=== PATIENT | male | born 1975 | race Two or more races ===

== ENCOUNTER 2018-05-15 11:13 | Inpatient (IN) ==
[2018-05-15] MEDS ORDERED: Vancomycin Inj 1,000 MG in Sodium Chlor 0.9% Inj 250 ML IV.SIG STA (12:04)
[2018-05-15] MEDS ORDERED: Piperacil/Tazo 4.5 GM Premix 4.5 GM/100 ML BAG IV.SIG STA (12:04)
--- NOTE | 2018-05-15 12:33 | ED ---
HPI General Chief Complaint: Abdominal Pain Stated Complaint: Abdominal Pain Time Seen by Provider: 05/15/18 11:55 Source: patient Mode of arrival: ambulatory Limitations: no limitations History of Present Illness HPI narrative: Patient is a 42-year-old male presenting to the emergency department for evaluation of abdominal pain. Patient is on peritoneal dialysis. He reported red appearing peritoneal fluid yesterday, he noticed it again this morning. Today he developed the diffuse abdominal pain. He denies any fever chills. He denies any nausea or vomiting. Symptom onset was gradual , symptoms are moderate in nature. No alleviating factors. Pain is worse with movement. MD complaint: abdominal pain Onset (ago): day(s) Pain Consistency: constant Location: diffuse Severity: moderate Severity scale (1-10): 6 Quality: aching Relieving factors: nothing Exacerbating factors: movement Associated symptoms: denies other symptoms Related Data Home Medications Medication Instructions Recorded Confirmed amlodipine 10 mg PO DAILY 05/15/18 05/15/18 calcitriol 0.25 mcg PO Q OTHER DAY 05/15/18 05/15/18 calcium acetate 1,334 mg PO DAILY 05/15/18 05/15/18 mupirocin 1 applic TOPICAL DAILY 05/15/18 05/15/18 terazosin 2 mg PO HS 05/15/18 05/15/18 Allergies Allergy/AdvReac Type Severity Reaction Status Date / Time morphine AdvReac Mild Shortness Verified 05/15/18 12:04 of Breath Review of Systems Except as stated in HPI: all other systems reviewed are negative Constitutional Reports system reviewed and no additional complaints, except as docu PMFSH Medical History Medical History Chronic kidney disease (Acute) Hypertension (Acute) Peritoneal dialysis catheter in place (Acute) Social History Social History Substance History: No History of Abuse Second Hand Smoke Exposure: No Smoking Status: Never smoker How Often Do You Have a Drink Containing Alcohol: 2 to 3 times a week Immunization History Tetanus Immunization: <5 Years Hx Influenza Vaccine This Season: Yes Exam Narrative Exam Narrative: GENERAL: Well-developed, well-nourished, alert male. Presenting in no acute distress. SKIN: Focused skin assessment warm/dry. HEAD: Atraumatic. Normocephalic. EYES: Pupils equal and round. No scleral icterus. No injection or drainage. ENT: No nasal bleeding or discharge. Mucous membranes pink and moist. NECK: Trachea midline. No JVD. CARDIOVASCULAR: Regular rate and rhythm. 2/6 systolic murmur appreciated. RESPIRATORY: No accessory muscle use. Clear to auscultation. Breath sounds equal bilaterally. GASTROINTESTINAL: Abdomen soft, tender to palpation diffusely, nondistended. Hepatic and splenic margins not palpable. Peritoneal dialysis catheter just superior to umbilicus. No warmth or erythema noted to abdominal skin. MUSCULOSKELETAL: No obvious deformities. No clubbing. No cyanosis. No edema. NEUROLOGICAL: Awake and alert. No obvious cranial nerve deficits. Motor grossly within normal limits. Normal speech. PSYCHIATRIC: Appropriate mood and affect; insight and judgment normal. Course Initial Documented Vital Signs Temperature 98.5 F 05/15/18 11:19 Pulse Rate 80 05/15/18 11:19 Respiratory Rate 17 05/15/18 11:19 Blood Pressure 136/83 05/15/18 11:19 Pulse Oximetry 97 05/15/18 11:19 Last Documented Vital Signs Temperature 98.6 F 05/15/18 14:32 Pulse Rate 70 05/15/18 14:32 Respiratory Rate 18 05/15/18 14:32 Blood Pressure 135/75 05/15/18 14:32 Pulse Oximetry 98 05/15/18 14:32 Medical Decision Making MDM Narrative Medical decision making narrative: Patient presented with 2 days of red peritoneal fluid with an acute onset of abdominal pain today. Patient's vital signs are stable, labs and imaging ordered and pending. Sepsis workup initiated. Labs imaging reviewed. Patient was started on empiric antibiotics. Cultures are pending. Peritoneal fluid cultures are pending. The bloody drainage could related to the change of his catheter however he will be admitted this time to rule out peritonitis. Differential Diagnosis Differential Diagnosis: Sepsis versus peritonitis versus hemorrhage versus other Lab Data Lab results reviewed: Yes I reviewed the patient's lab results. Result diagrams: 05/15/18 12:20 05/15/18 12:20 Lab Results 05/15/18 05/15/18 05/15/18 Range/Units 12:20 12:20 12:20 WBC 11.4 H (4.0-11.0) th/mm3 RBC 3.93 L (4.50-5.90) mil/mm3 Hgb 11.9 L (13.0-17.0) gm/dL Hct 34.8 L (39.0-51.0) % MCV 88.5 (80.0-100.0) fL MCH 30.2 (27.0-34.0) pg MCHC 34.2 (32.0-36.0) % RDW 13.9 (11.6-17.2) % Plt Count 177 (150-450) th/mm3 MPV 8.6 (7.0-11.0) fL Neut % (Auto) 80.4 H (16.0-70.0) % Lymph % (Auto) 6.1 L (9.0-44.0) % [place] % (Auto) 10.9 H (0.0-8.0) % Eos % (Auto) 2.4 (0.0-4.0) % Baso % (Auto) 0.2 (0.0-2.0) % Neut # (Auto) 9.2 H (1.8-7.7) th/mm3 Lymph # (Auto) 0.7 L (1.0-4.8) th/mm3 [place] # (Auto) 1.2 H (0.0-0.9) th/mm3 Eos # (Auto) 0.3 (0.0-0.4) th/mm3 Baso # (Auto) 0.0 (0.0-0.2) th/mm3 WBC Differential . Differential Comment Auto diff final PT 10.5 (9.8-11.6) sec INR 1.0 Ratio APTT 31.7 H (24.3-30.1) sec Sodium 137 (136-145) meq/L Potassium 3.9 (3.5-5.1) meq/L Chloride 101 (98-107) meq/L Carbon Dioxide 24.9 (21.0-32.0) meq/L Anion Gap 11 (5-15) meq/L BUN 48 H (7-18) mg/dL Creatinine 6.54 H (0.60-1.30) mg/dL Estimated GFR 9 L (>89) mL/min Random Glucose 95 (74-106) mg/dL Lactic Acid (0.4-2.0) mmol/L Calcium 8.7 (8.5-10.1) mg/dL Phosphorus 3.9 (2.5-4.9) mg/dL Magnesium 1.9 (1.5-2.5) mg/dL Total Bilirubin 0.8 (0.2-1.0) mg/dL AST 8 L (15-37) U/L ALT 19 (12-78) U/L Alkaline Phosphatase 76 (45-117) U/L Total Protein 7.4 (6.4-8.2) g/dL Albumin 3.1 L (3.4-5.0) g/dL Lipase 116 (73-393) U/L Peritoneal pH Peritoneal Tot Protein gm/dL 05/15/18 05/15/18 Range/Units 12:20 13:15 WBC (4.0-11.0) th/mm3 RBC (4.50-5.90) mil/mm3 Hgb (13.0-17.0) gm/dL Hct (39.0-51.0) % MCV (80.0-100.0) fL MCH (27.0-34.0) pg MCHC (32.0-36.0) % RDW (11.6-17.2) % Plt Count (150-450) th/mm3 MPV (7.0-11.0) fL Neut % (Auto) (16.0-70.0) % Lymph % (Auto) (9.0-44.0) % [place] % (Auto) (0.0-8.0) % Eos % (Auto) (0.0-4.0) % Baso % (Auto) (0.0-2.0) % Neut # (Auto) (1.8-7.7) th/mm3 Lymph # (Auto) (1.0-4.8) th/mm3 [place] # (Auto) (0.0-0.9) th/mm3 Eos # (Auto) (0.0-0.4) th/mm3 Baso # (Auto) (0.0-0.2) th/mm3 WBC Differential Differential Comment PT (9.8-11.6) sec INR Ratio APTT (24.3-30.1) sec Sodium (136-145) meq/L Potassium (3.5-5.1) meq/L Chloride (98-107) meq/L Carbon Dioxide (21.0-32.0) meq/L Anion Gap (5-15) meq/L BUN (7-18) mg/dL Creatinine (0.60-1.30) mg/dL Estimated GFR (>89) mL/min Random Glucose (74-106) mg/dL Lactic Acid 1.1 (0.4-2.0) mmol/L Calcium (8.5-10.1) mg/dL Phosphorus (2.5-4.9) mg/dL Magnesium (1.5-2.5) mg/dL Total Bilirubin (0.2-1.0) mg/dL AST (15-37) U/L ALT (12-78) U/L Alkaline Phosphatase (45-117) U/L Total Protein (6.4-8.2) g/dL Albumin (3.4-5.0) g/dL Lipase (73-393) U/L Peritoneal pH 7.5 Peritoneal Tot Protein 0.3 gm/dL Imaging Data Radiologist's impression: ITS Impressions Chest X-Ray 05/15/18 12:04 CONCLUSION: No acute cardiopulmonary disease Abdomen/Pelvis CT 05/15/18 14:14 CONCLUSION: 1. Free intraperitoneal air. This may be related to peritoneal dialysis catheter which is looped in the pelvis and enters just to the left of umbilical region. 2. Mild ascites. Atrophic [place] kidneys. Radiology reports reviewed. Discharge Plan Discharge Disposition Patient Disposition: 30 Still Patient Discharge Condition Condition: Stable Discharge Details Discharge Problem: Peritonitis associated with peritoneal dialysis, CRF (chronic renal failure) Physicians Team ED Provider: Jian Edmonds ED Midlevel Provider: Monserrat Rogers Primary Care Provider: Primary Care PhysiciKati Rxs /Orders / Referrals /Forms Prescriptions: No Action amlodipine 10 mg Tablet 10 mg PO DAILY RF: 0 mupirocin 2 % Ointment 1 applic TOPICAL DAILY RF: 0 calcitriol 0.25 mcg Capsule 0.25 mcg PO Q OTHER DAY RF: 0 calcium acetate 667 mg Capsule 1,334 mg PO DAILY RF: 0 terazosin 2 mg PO HS RF: 0 Discharge Interventions Interventions: Vital Signs Last Done: 05/15/18 14:32 Status ED Status: With Doctor
[2018-05-15 12:36] LABS: Baso % (Auto) 0.2 % (0.0-2.0); Eos # (Auto) 0.3 th/mm3 (0.0-0.4); Eos % (Auto) 2.4 % (0.0-4.0); Hematocrit 34.8 % (39.0-51.0); Hemoglobin 11.9 gm/dL (13.0-17.0); Lymph # (Auto) 0.7 th/mm3 (1.0-4.8); Lymph % (Auto) 6.1 % (9.0-44.0); Mean Corpuscular HGB Conc 34.2 % (32.0-36.0); Mean Corpuscular Hemoglobin 30.2 pg (27.0-34.0); Mean Corpuscular Volume 88.5 fL (80.0-100.0); Mean Platelet Volume 8.6 fL (7.0-11.0); Mono # (Auto) 1.2 th/mm3 (0.0-0.9); Mono % (Auto) 10.9 % (0.0-8.0); Neut # (Auto) 9.2 th/mm3 (1.8-7.7); Neut % (Auto) 80.4 % (16.0-70.0); Platelet Count 177 th/mm3 (150-450); Red Blood Count 3.93 mil/mm3 (4.50-5.90); Red Cell Distribution Width 13.9 % (11.6-17.2); White Blood Count 11.4 th/mm3 (4.0-11.0)
[2018-05-15 12:44] LABS: Activated Partial Thrombo Time 31.7 sec (24.3-30.1); Prothrombin Time 10.5 sec (9.8-11.6)
[2018-05-15 12:58] LABS: Albumin 3.1 g/dL (3.4-5.0); Anion Gap 11 meq/L (5-15); Aspartate Aminotransferase 8 U/L (15-37); Blood Urea Nitrogen 48 mg/dL (7-18); Calcium 8.7 mg/dL (8.5-10.1); Carbon Dioxide 24.9 meq/L (21.0-32.0); Chloride 101 meq/L (98-107); Glomerular Filtration Rate 9 mL/min (>89); Glucose,Random 95 mg/dL (74-106); Lipase 116 U/L (73-393); Magnesium 1.9 mg/dL (1.5-2.5); Potassium 3.9 meq/L (3.5-5.1); Sodium 137 meq/L (136-145)
[2018-05-15 12:59] LABS: Alanine Aminotransferase 19 U/L (12-78); Phosphorus 3.9 mg/dL (2.5-4.9)
[2018-05-15 13:01] LABS: Alkaline Phosphatase 76 U/L (45-117); Total Protein 7.4 g/dL (6.4-8.2)
--- NOTE | 2018-05-15 13:05 | XR ---
EXAM DATE: 05/15/2018 12:57 PM EDT AGE/SEX: 42 years / Male INDICATIONS: Fever CLINICAL DATA: This is the patient's initial encounter. Patient reports that signs and symptoms have been present for 1 day and indicates a pain score of 0/10. MEDICAL/SURGICAL HISTORY: None. None. COMPARISON: No prior exams available for comparison. FINDINGS: A single AP view of the chest demonstrates the lungs to be symmetrically aerated without evidence of mass, infiltrate or effusion. The cardiomediastinal contours are unremarkable. Osseous structures a re intact. CONCLUSION: No acute cardiopulmonary disease Electronically signed by: Massimo Downs MD 05/15/2018 1:04 PM EDT
[2018-05-15 15:32] LABS: Total Protein,Peritoneal Fluid 0.3 gm/dL
--- NOTE | 2018-05-15 15:44 | CT ---
EXAM DATE: 05/15/2018 3:02 PM EDT AGE/SEX: 42 years / Male INDICATIONS: Right lower quadrant pain 2 days per patient CLINICAL DATA: This is the patient's initial encounter. Patient reports that signs and symptoms have been present for 2 days and indicates a pain score of 4/10. MEDICAL/SURGICAL HISTORY: Renal disease. Hypertension. . Peritoneal dialysis cath RADIATION DOSE: 6.75 CTDI (mGy) COMPARISON: No prior exams available for comparison. TECHNIQUE: Multiple contiguous axial images were obtained through the abdomen. Images were obtained using multiple row detector helical technique. Using automated exposure control and adjustment of the mA and/or kV according to patient size, radiation dose was kept as low as reasonably achievable to o btain optimal diagnostic quality images. DICOM format image data is available electronically for rev iew and comparison. FINDINGS: Lung bases demonstrate mild dependent atelectasis. There is free intraperitoneal air within the abdomen. This could be related to peritoneal dialysis ca theter. There is mild ascites predominantly around the liver and right paracolic gutter but also exte nding pelvis. No acute findings identified within the liver, spleen, adrenals or pancreas. The [place] kidneys are a trophic. Peritoneal dialysis catheter is looped in the pelvis. No bowel obstruction. Small hiatal her hossein. CONCLUSION: 1. Free intraperitoneal air. This may be related to peritoneal dialysis catheter which is looped in the pelvis and enters just to the left of umbilical region. 2. Mild ascites. Atrophic [place] kidneys. Electronically signed by: Micheal Hathaway MD 05/15/2018 3:43 PM EDT
[2018-05-15] MEDS ORDERED: Senna/Docusate Sodium 8.6/50 MG Tablet PO PRN (16:40)
[2018-05-15] MEDS ORDERED: Bisacodyl 10 MG Supp RECTAL PRN (16:40)
[2018-05-15] MEDS ORDERED: Temazepam 15 MG Capsule PO PRN (16:40)
--- NOTE | 2018-05-15 16:40 | P.HPFP ---
History of Present Illness Primary Care Physician: No Primary Care Physician <Jory Porter - 05/16/18 15:50> No Primary Care Physician <Adriana Kelly - 05/15/18 16:40> Chief Complaint: abdominal pain <Adriana Kelly - 05/15/18 23:24> History of Present Illness: Patient is a 42-year-old male with past medical history of hypertension and chronic kidney disease on peritoneal dialysis who presents to the ED due to diffuse abdominal pain. Patient is currently on vacation from [place]. He reports that 2 days ago he had the external portion of his peritoneal dialysis tubing replaced. Since Wednesday he has noted bloody/cloudy peritoneal fluid during his peritoneal dialysis. Denies any blood clots in the fluid. Patient reports that yesterday he ate a heavy fatty meal and developed severe diffuse abdominal pain worse at right upper quadrant. At that time abdominal pain was 7/10, currently abdominal pain is 1/10 since receiving pain medications in the ED. Patient vomited once, nonbloody non- bilious. Today he denies any fever, nausea or vomiting, diarrhea, chest pain, shortness of breath, numbness, weight loss. Patient does endorse chills on Wednesday night, now resolved. Of note patient has been on peritoneal dialysis for the past 5 years. Denies any previous episodes of blood in the peritoneal fluid or prior infection. He reports he still able to make urine and denies any dysuria. The ED patient received Zosyn 1, vancomycin 1 , [place] [address] abdomen pelvis showed free intraperitoneal air possibly due to peritoneal dialysis catheter, mild ascites and atrophic platinum kidneys. <Adriana Kelly - 05/15/18 23:37> - Diagnosis (1) Peritonitis associated with peritoneal dialysis (2) CRF (chronic renal failure) (3) Hypertension (4) Nutrition, metabolism, and development symptoms <Jory Porter - 05/16/18 15:50> (1) Peritonitis associated with peritoneal dialysis (2) CRF (chronic renal failure) (3) Hypertension (4) Nutrition, metabolism, and development symptoms <Adriana Kelly - 05/15/18 23:30> Inpatient Certification: I certify that the inpatient services were ordered in accordance with Medicare regulations governing the order. This includes certification that hospital inpatient services are reasonable and necessary and in the case of services not specified as inpatient-only under 42 CFR 419.22(n), that they are appropriately provided as inpatient services in accordance to with the 2-midnight benchmark under 43 CFR 412.3(e) <Jory Porter - 05/16/18 15:50> I certify that the inpatient services were ordered in accordance with Medicare regulations governing the order. This includes certification that hospital inpatient services are reasonable and necessary and in the case of services not specified as inpatient-only under 42 CFR 419.22(n), that they are appropriately provided as inpatient services in accordance to with the 2-midnight benchmark under 43 CFR 412.3(e) <Adriana Kelly 05/15/18 16:40> Review of Systems All other systems reviewed negative except as stated in HPI <Adriana Kelly 05/15/18 23:24> PMFSH - History History Provided By: Patient <Adriana Kelly 05/15/18 16:40> - Medical History Medical History: Medical History (Last Reviewed 05/15/18 @ 12:31 by ROB Tang) Chronic kidney disease Hypertension Peritoneal dialysis catheter in place <Jory Porter - 05/16/18 15:50> Medical History (Last Reviewed 05/15/18 @ 12:31 by ROB Tang) Chronic kidney disease Hypertension Peritoneal dialysis catheter in place <Adriana Kelly 05/15/18 16:40> - Tobacco History Second Hand Smoke Exposure: No <Adriana Kelly 05/15/18 16:40> Smoking Status: Never smoker <Adriana Kelly 05/15/18 16:40> - Alcohol History How Often Do You Have a Drink Containing Alcohol: Monthly or less <Adriana Kelly 05/15/18 23:24> - Substance Use History Substance History: No History of Abuse <Adriana Kelly 05/15/18 16:40> - Immunization History Tetanus Immunization: <5 Years <Adriana Kelly 05/15/18 16:40> Hx Influenza Vaccine This Season: Yes <Adriana Kelly 05/15/18 16:40> Medications and Allergies Allergies Allergy/AdvReac Type Severity Reaction Status Date / Time morphine AdvReac Mild Shortness Verified 05/15/18 12:04 of Breath <Jory Porter - 05/16/18 15:50> Home Medications Medication Instructions Recorded Confirmed Type amlodipine 10 mg PO DAILY 05/15/18 05/15/18 History calcitriol 0.25 mcg PO Q OTHER DAY 05/15/18 05/15/18 History calcium acetate 1,334 mg PO DAILY 05/15/18 05/15/18 History mupirocin 1 applic TOPICAL DAILY 05/15/18 05/15/18 History terazosin 2 mg PO HS 05/15/18 05/15/18 History <Jory Porter - 05/16/18 15:50> Active Medications: Active Medications Acetaminophen (Tylenol) 650 mg PO Q6HR PRN PRN Reason: PAIN SCALE 1 TO 2 Hydrocodone Bitart/Acetaminophen ([place] 5/325) 1 tab PO Q4H PRN PRN Reason: PAIN SCALE 3 TO 5 Last Admin: 05/15/18 23:43 Dose: 1 tab Al Hydroxide/Mg Hydroxide (Milk Of Magnesia Liq) 30 ml PO Q12H PRN PRN Reason: Mild Constipation Amlodipine Besylate (Norvasc) 10 mg PO DAILY [facility] Last Admin: 05/16/18 08:56 Dose: 10 mg Bisacodyl (Dulcolax Supp) 10 mg RECTAL DAILY PRN PRN Reason: SEVERE CONSITIPATION Calcitriol (Rocaltrol) 0.25 mcg PO Q48H [facility] Last Admin: 05/16/18 00:01 Dose: 0.25 mcg Calcium Acetate (Phoslo) 1,334 mg PO DAILY [facility] Last Admin: 05/16/18 08:56 Dose: 1,334 mg Ceftazidime (Tazicef Inj) 1,000 mg I-PERITONL DAILY [facility] Lactulose (Lactulose Liq) 30 ml PO DAILY PRN PRN Reason: SEVERE CONSITIPATION Mupirocin (Bactroban 2% Oint) 1 applicatio TOPICAL DAILY [facility] Last Admin: 05/16/18 12:51 Dose: 1 applicatio Ondansetron HCl (Zofran Inj) 4 mg IV.PUSH Q6H PRN PRN Reason: NAUSEA OR VOMITING Oxycodone/Acetaminophen (Percocet 10/325 Mg) 1 tab PO Q6H PRN PRN Reason: PAIN SCALE 6 TO 10 Last Admin: 05/16/18 08:58 Dose: 1 tab Senna/Docusate Sodium (Ijeoma-Colace) 1 tab PO BID PRN PRN Reason: CONSTIPATION Sennosides (Senokot) 17.2 mg PO Q12H PRN PRN Reason: Moderate Constipation Temazepam (Restoril) 15 mg PO HS PRN PRN Reason: INSOMNIA Terazosin HCl (Hytrin) 2 mg PO HS [facility] Last Admin: 05/16/18 00:02 Dose: 2 mg Vancomycin HCl (Vancomycin Inj) 2,000 mg I-PERITONL Q7D [facility] <Jory Porter - 05/16/18 15:50> Exam Vital signs: Vital Signs 05/15/18 20:00 05/16/18 00:00 05/16/18 04:00 Temperature 98.3 F 98.8 F 97.8 F Pulse Rate 58 L 79 64 Respiratory Rate 18 18 18 Blood Pressure 120/69 133/72 105/55 L Pulse Oximetry 98 97 99 05/16/18 08:00 05/16/18 09:28 05/16/18 11:45 Temperature 98.4 F 98.4 F Pulse Rate 67 63 Respiratory Rate 20 4 L 20 Blood Pressure 123/70 109/59 L Pulse Oximetry 94 L 94 L Intake & Output 05/15/18 05/16/18 05/16/18 18:59 06:59 18:59 Intake Total 100 / 100 420 / 420 Balance 100 / 100 420 / 420 Weight 79.379 kg 79.3 kg Intake: IV 100 / 100 Zosyn 4.5 GM Premix 4.5 gm In 100 / 100 100 ml @ 200 mls/hr IV.SIG STAT STA Rx#:[id number] Oral 420 / 420 Other: # Voids 2 Date of Last Bowel Movement 05/15/18 <Jory Porter - 05/16/18 15:50> Vital Signs 05/15/18 11:19 05/15/18 12:04 05/15/18 12:39 Temperature 98.5 F Pulse Rate 80 76 75 Respiratory Rate 17 18 Blood Pressure 136/83 152/67 H Pulse Oximetry 97 98 97 05/15/18 13:14 05/15/18 14:32 Temperature 98.6 F Pulse Rate 70 Respiratory Rate 18 18 Blood Pressure 135/75 Pulse Oximetry 98 Intake & Output 05/14/18 05/15/18 05/15/18 18:59 06:59 18:59 Intake Total 100 / 100 Balance 100 / 100 Weight 79.379 kg Intake: IV 100 / 100 Zosyn 4.5 GM Premix 4.5 gm In 100 / 100 100 ml @ 200 mls/hr IV.SIG STAT STA Rx#:[id number] <GennaroAdriana ingram 05/15/18 16:40> - Constitutional no acute distress, average body habitus <RobinAdriana Jeanette 05/15/18 23:24> - Routine HEENT Exam Head: Present: normocephalic <GennaronatalyYasminAdriana 05/15/18 23:24> Eye: Present: EOMI, PERRL <GennaronatalyYasminAdriana 05/15/18 23:24> ENT: Present: mucous membranes moist <VaughnYasminAdriana Jeanette 05/15/18 23:24> - Routine Neck Exam Present: supple, full ROM. Absent: JVD <GennaronatalyYasminAdriana Jeanette 05/15/18 23:24> - Routine Chest/Breast/Axilla Exam Chest wall: Absent: tenderness <VaughnYasminAdriana 05/15/18 23:24> - Routine Respiratory Exam Present: CTA bilaterally. Absent: accessory muscle use <GennaronatalyYamsinAdriana Jeanette 06/25 23:24> - Routine Cardiovascular Exam Present: RRR, S1, S2. Absent: murmur, gallop, rubs <GennaronatalyYasminAdriana Jeanette 23:24> - Routine Abdominal Exam Present: soft, normoactive bowel sounds, tenderness (mild tenderness to palpation at RUQ, Negative Savage's sign), drain (PD tubing in place, slight blood around entry site, however no erythema, swelling, or pus noted. Incision c /d/i. ). Absent: distended, guarding <Adriana Kelly 05/15/18 23:24> - Routine Extremities Exam Present: full ROM, pulses intact, normal capillary refill. Absent: cyanosis, clubbing, edema, calf tenderness, tenderness, joint swelling <Adriana Kelly Jeanette - 05/15/18 23:24> - Routine Skin Exam Present: intact. Absent: erythema <Adriana Kelly Jeanette - 05/15/18 23:24> - Routine Neurological Exam Present: alert, oriented X3, CN II-XII intact, normal speech. Absent: sensory deficit <Adriana Kelly Jeanette - 05/15/18 23:24> Results - Labs Result diagrams: 05/16/18 06:58 05/16/18 06:58 <Jory Porter - 05/16/18 15:50> Abnormal lab results 05/15/18 05/15/18 05/16/18 Range/Units 13:15 15:58 06:58 RBC 3.58 L (4.50-5.90) mil/mm3 Hgb 10.8 L (13.0-17.0) gm/dL Hct 31.9 L (39.0-51.0) % Norton % (Auto) 12.6 H (0.0-8.0) % Eos % (Auto) 10.4 H (0.0-4.0) % Lymph # (Auto) 0.9 L (1.0-4.8) th/mm3 Eos # (Auto) 0.8 H (0.0-0.4) th/mm3 BUN (7-18) mg/dL Creatinine (0.60-1.30) mg/dL Estimated GFR (>89) mL/min AST (15-37) U/L Albumin (3.4-5.0) g/dL Urine Protein 100 H (Neg-Trace) mg/dL Urine Occult Blood Small H (Negative) Peritoneal RBC 1299 H (0-0) /mm3 Periton Nuc Cells 30829 H (0-10) /mm3 05/16/18 Range/Units 06:58 RBC (4.50-5.90) mil/mm3 Hgb (13.0-17.0) gm/dL Hct (39.0-51.0) % Norton % (Auto) (0.0-8.0) % Eos % (Auto) (0.0-4.0) % Lymph # (Auto) (1.0-4.8) th/mm3 Eos # (Auto) (0.0-0.4) th/mm3 BUN 56 H (7-18) mg/dL Creatinine 6.89 H (0.60-1.30) mg/dL Estimated GFR 9 L (>89) mL/min AST 3 L (15-37) U/L Albumin 2.5 L D (3.4-5.0) g/dL Urine Protein (Neg-Trace) mg/dL Urine Occult Blood (Negative) Peritoneal RBC (0-0) /mm3 Periton Nuc Cells (0-10) /mm3 Short CBC 05/16/18 Range/Units 06:58 WBC 7.2 (4.0-11.0) th/mm3 Hgb 10.8 L (13.0-17.0) gm/dL Hct 31.9 L (39.0-51.0) % Plt Count 157 (150-450) th/mm3 BMP 05/16/18 06:58 Sodium 139 Potassium 4.0 Chloride 103 Carbon Dioxide 24.2 BUN 56 H Creatinine 6.89 H Calcium 8.5 Liver Function 05/16/18 Range/Units 06:58 Total Bilirubin 1.0 (0.2-1.0) mg/dL AST 3 L (15-37) U/L ALT 14 (12-78) U/L Alkaline Phosphatase 87 (45-117) U/L Albumin 2.5 L D (3.4-5.0) g/dL Urine 05/15/18 Range/Units 15:58 Urine Color Yellow (Yellw/Straw) Urine Clarity Clear (Clear) Urine pH 7.0 (5.0-8.5) Ur Specific Colman 1.009 (1.002-1.035) Urine Protein 100 H (Neg-Trace) mg/dL Urine Glucose (UA) 50 (Negative) mg/dL <Jory Porter - 05/16/18 15:50> Abnormal lab results 05/15/18 05/15/18 05/15/18 Range/Units 12:20 12:20 12:20 WBC 11.4 H (4.0-11.0) th/mm3 RBC 3.93 L (4.50-5.90) mil/mm3 Hgb 11.9 L (13.0-17.0) gm/dL Hct 34.8 L (39.0-51.0) % Neut % (Auto) 80.4 H (16.0-70.0) % Lymph % (Auto) 6.1 L (9.0-44.0) % Norton % (Auto) 10.9 H (0.0-8.0) % Neut # (Auto) 9.2 H (1.8-7.7) th/mm3 Lymph # (Auto) 0.7 L (1.0-4.8) th/mm3 Norton # (Auto) 1.2 H (0.0-0.9) th/mm3 APTT 31.7 H (24.3-30.1) sec BUN 48 H (7-18) mg/dL Creatinine 6.54 H (0.60-1.30) mg/dL Estimated GFR 9 L (>89) mL/min AST 8 L (15-37) U/L Albumin 3.1 L (3.4-5.0) g/dL Short CBC 05/15/18 Range/Units 12:20 WBC 11.4 H (4.0-11.0) th/mm3 Hgb 11.9 L (13.0-17.0) gm/dL Hct 34.8 L (39.0-51.0) % Plt Count 177 (150-450) th/mm3 BMP 05/15/18 12:20 Sodium 137 Potassium 3.9 Chloride 101 Carbon Dioxide 24.9 BUN 48 H Creatinine 6.54 H Calcium 8.7 Liver Function 05/15/18 Range/Units 12:20 Total Bilirubin 0.8 (0.2-1.0) mg/dL AST 8 L (15-37) U/L ALT 19 (12-78) U/L Alkaline Phosphatase 76 (45-117) U/L Albumin 3.1 L (3.4-5.0) g/dL <Adriana Kelly - 05/15/18 16:40> - Imaging Impressions Liver Ultrasound 05/15/18 00:00 CONCLUSION: 1. No gallstones identified. No biliary ductal dilatation. Small gallbladder polyps. Right kidney atrophic. Trace free fluid. <Jory Porter - 05/16/18 15:50> Impressions Chest X-Ray 05/15/18 12:04 CONCLUSION: No acute cardiopulmonary disease Abdomen/Pelvis CT 05/15/18 14:14 CONCLUSION: 1. Free intraperitoneal air. This may be related to peritoneal dialysis catheter which is looped in the pelvis and enters just to the left of umbilical region. 2. Mild ascites. Atrophic platinum kidneys. <Adriana Kelly - 05/15/18 16:40> Caprini VTE Risk Assessment Caprini VTE Risk Assessment: Moderate/High Risk (score >= 2) <Adriana Kelly 05/15/18 23:24> VTE Pharmacological Exception Reason: High risk for bleeding <Adriana Kelly 05/15/18 23:24> Caprini Risk Assessment Model: Point Value = 1 Point Value = 2 Point Value = 3 Point Value = 5 Age 41-60 Minor surgery BMI > 25 kg/m2 Swollen legs Varicose veins or History of unexplained or recurrent spontaneous Oral contraceptives or hormone replacement Sepsis (< 1 month) Serious lung disease, including pneumonia (< 1 month) Abnormal pulmonary function Acute myocardial infarction Congestive heart failure (< 1 month) History of inflammatory bowel disease Medical patient at bed rest Age 61-74 Arthroscopic surgery Major open surgery (> 45 min) Laparoscopic surgery (> 45 min) Malignancy Confined to bed (> 72 hours) Immobilizing plaster cast Central venous access Age >= 75 History of VTE Family history of VTE Factor V Leiden Prothrombin [id number] Lupus anticoagulant Anticardiolipin antibodies Elevated serum homocysteine Heparin-induced thrombocytopenia Other congenital or acquired thrombophilia Stroke (< 1 month) Elective arthroplasty Hip, pelvis, or leg fracture Acute spinal cord injury (< 1 month) <Jory Porter - 05/16/18 15:50> Point Value = 1 Point Value = 2 Point Value = 3 Point Value = 5 Age 41-60 Minor surgery BMI > 25 kg/m2 Swollen legs Varicose veins or History of unexplained or recurrent spontaneous Oral contraceptives or hormone replacement Sepsis (< 1 month) Serious lung disease, including pneumonia (< 1 month) Abnormal pulmonary function Acute myocardial infarction Congestive heart failure (< 1 month) History of inflammatory bowel disease Medical patient at bed rest Age 61-74 Arthroscopic surgery Major open surgery (> 45 min) Laparoscopic surgery (> 45 min) Malignancy Confined to bed (> 72 hours) Immobilizing plaster cast Central venous access Age >= 75 History of VTE Family history of VTE Factor V Leiden Prothrombin [id number] Lupus anticoagulant Anticardiolipin antibodies Elevated serum homocysteine Heparin-induced thrombocytopenia Other congenital or acquired thrombophilia Stroke (< 1 month) Elective arthroplasty Hip, pelvis, or leg fracture Acute spinal cord injury (< 1 month) <Adriana Kelly - 05/15/18 16:40> Prophylaxis Regimen: Total Risk Factor Score Risk Level Prophylaxis Regimen 0-1 Low Early ambulation 2 Moderate Order ONE of the following: *Sequential Compression Device (SCD) *Heparin 5000 units SQ BID 3-4 Higher Order ONE of the following medications: *Heparin 5000 units SQ TID *Enoxaparin/Lovenox 40 mg SQ daily (WT < 150 kg, CrCl > 30 mL/min) *Enoxaparin/Lovenox 30 mg SQ daily (WT < 150 kg, CrCl > 10-29 mL/min) *Enoxaparin/Lovenox 30 mg SQ BID (WT < 150 kg, CrCl > 30 mL/min) AND/OR *Sequential Compression Device (SCD) 5 or more Highest Order ONE of the following medications: *Heparin 5000 units SQ TID (Preferred with Epidurals) *Enoxaparin/Lovenox 40 mg SQ daily (WT < 150 kg, CrCl > 30 mL/min) *Enoxaparin/Lovenox 30 mg SQ daily (WT < 150 kg, CrCl > 10-29 mL/min) *Enoxaparin/Lovenox 30 mg SQ BID (WT < 150 kg, CrCl > 30 mL/min) AND *Sequential Compression Device (SCD) <Jory Porter - 05/16/18 15:50> Total Risk Factor Score Risk Level Prophylaxis Regimen 0-1 Low Early ambulation 2 Moderate Order ONE of the following: *Sequential Compression Device (SCD) *Heparin 5000 units SQ BID 3-4 Higher Order ONE of the following medications: *Heparin 5000 units SQ TID *Enoxaparin/Lovenox 40 mg SQ daily (WT < 150 kg, CrCl > 30 mL/min) *Enoxaparin/Lovenox 30 mg SQ daily (WT < 150 kg, CrCl > 10-29 mL/min) *Enoxaparin/Lovenox 30 mg SQ BID (WT < 150 kg, CrCl > 30 mL/min) AND/OR *Sequential Compression Device (SCD) 5 or more Highest Order ONE of the following medications: *Heparin 5000 units SQ TID (Preferred with Epidurals) *Enoxaparin/Lovenox 40 mg SQ daily (WT < 150 kg, CrCl > 30 mL/min) *Enoxaparin/Lovenox 30 mg SQ daily (WT < 150 kg, CrCl > 10-29 mL/min) *Enoxaparin/Lovenox 30 mg SQ BID (WT < 150 kg, CrCl > 30 mL/min) AND *Sequential Compression Device (SCD) <Adriana Kelly - 05/15/18 16:40> Assessment and Plan - Assessment (1) Peritonitis associated with peritoneal dialysis Code(s): T85.71XA - Infection and inflammatory reaction due to peritoneal dialysis catheter, initial encounter Status: Acute (2) CRF (chronic renal failure) Code(s): N18.9 - Chronic kidney disease, unspecified Status: Acute (3) Hypertension Code(s): I10 - Essential (primary) hypertension Status: Acute (4) Nutrition, metabolism, and development symptoms Code(s): R63.8 - Other symptoms and signs concerning food and fluid intake Status: Acute <Jory Porter - 05/16/18 15:50> (1) Peritonitis associated with peritoneal dialysis Code(s): T85.71XA - Infection and inflammatory reaction due to peritoneal dialysis catheter, initial encounter Status: Acute Plan: Patient with history of peritoneal dialysis for the past 5 years without any prior complications presenting with 2 day history of bloody/cloudy peritoneal fluid accompanied by diffuse abdominal pain. There is concern for peritonitis due to infection. Vital signs within normal limits Slight leukocytosis of 11.[address] abdomen pelvis showed free intraperitoneal air possibly due to peritoneal dialysis catheter, mild ascites and atrophic platinum kidneys. Chest x-ray: Normal Liver ultrasound: No gallstones or biliary ductal dilation, small gallbladder polyps and right atrophic kidney. Mild trace free fluid. Continue to monitor vital signs Pain management: [place] per pain scale Continue with Zosyn 2.5g every 8 hours Nephrology consulted, appreciate recommendations and assisting with management of peritoneal dialysis. Follow-up: Blood cultures Peritoneal fluid studies A.m. labs (2) CRF (chronic renal failure) Code(s): N18.9 - Chronic kidney disease, unspecified Status: Acute Plan: Patient with BUN/creatinine of 48/6.4 and GFR of 9. Avoid nephrotoxic agents Continue to monitor Follow nephrology recommendations (3) Hypertension Code(s): I10 - Essential (primary) hypertension Status: Acute Plan: Blood pressure within normal limits Continue with home blood pressure medications (4) Nutrition, metabolism, and development symptoms Code(s): R63.8 - Other symptoms and signs concerning food and fluid intake Status: Acute Plan: Fluids: Patient is on PD, defer fluid recommendations to nephrology Electrolytes: Management per nephrology recommendations Nutrition: Renal diet DVT prophylaxis: SCDs <Adriana Kelly - 05/15/18 23:30> - Attending Attestation The exam, history, and the medical decision-making described in the above note were completed with the assistance of the resident physician. I reviewed and agree with the findings presented. I attest that I had a [id number] encounter with the patient on the same day, and personally performed and documented my assessment and findings in the medical record. He was seen on admission in the ED with the residents on admission. agree with treating with abx and checking cultures <Jory Porter - 05/16/18 15:50> <Adriana Kelly D - Last Filed: 05/15/18 23:30> (1) Peritonitis associated with peritoneal dialysis Qualifiers: Encounter type: initial encounter Qualified Code(s): T85.71XA - Infection and inflammatory reaction due to peritoneal dialysis catheter, initial encounter (2) CRF (chronic renal failure) Qualifiers: Chronic kidney disease stage: unspecified stage Qualified Code(s): N18.9 - Chronic kidney disease, unspecified <Jory Porter - Last Filed: 05/16/18 15:50> (1) Peritonitis associated with peritoneal dialysis Qualifiers: Encounter type: initial encounter Qualified Code(s): T85.71XA - Infection and inflammatory reaction due to peritoneal dialysis catheter, initial encounter (2) CRF (chronic renal failure) Qualifiers: Chronic kidney disease stage: unspecified stage Qualified Code(s): N18.9 - Chronic kidney disease, unspecified (3) Hypertension Qualifiers: Hypertension type: renovascular hypertension Qualified Code(s): I15.0 - Renovascular hypertension <Adriana Kelly - Last Filed: 05/15/18 23:30> (1) Peritonitis associated with peritoneal dialysis Qualifiers: Encounter type: initial encounter Qualified Code(s): T85.71XA - Infection and inflammatory reaction due to peritoneal dialysis catheter, initial encounter (2) CRF (chronic renal failure) Qualifiers: Chronic kidney disease stage: unspecified stage Qualified Code(s): N18.9 - Chronic kidney disease, unspecified <Jory Porter - Last Filed: 05/16/18 15:50> (1) Peritonitis associated with peritoneal dialysis Qualifiers: Encounter type: initial encounter Qualified Code(s): T85.71XA - Infection and inflammatory reaction due to peritoneal dialysis catheter, initial encounter (2) CRF (chronic renal failure) Qualifiers: Chronic kidney disease stage: unspecified stage Qualified Code(s): N18.9 - Chronic kidney disease, unspecified (3) Hypertension Qualifiers: Hypertension type: renovascular hypertension Qualified Code(s): I15.0 - Renovascular hypertension
[2018-05-15] MEDS ORDERED: Acetaminophen 325 MG Tablet PO PRN (17:03)
[2018-05-15] MEDS ORDERED: oxyCODONE/Acetaminophen 10/325 Tablet PO PRN (17:03)
[2018-05-15 17:05] LABS: Bilirubin,Urine Negative (Negative); Clarity,Urine Clear (Clear); Color,Urine Yellow (Yellw/Straw); Glucose,Urine (UA) 50 mg/dL (Negative); Leukocyte Esterase,Urine Negative (Negative); Nitrite,Urine Negative (Negative); Specific Gravity,Urine 1.009 (1.002-1.035)
[2018-05-15 17:33] LABS: Neutrophils,Peritoneal Fluid 90 %; RBC,Peritoneal Fluid 1299 /mm3 (0-0)
--- NOTE | 2018-05-15 20:48 | US ---
EXAM DATE: 05/15/2018 8:28 PM EDT AGE/SEX: 42 years / Male INDICATIONS: Abdominal pain. CLINICAL DATA: This is the patient's initial encounter. Patient reports that signs and symptoms have been present for 1 day and indicates a pain score of 5/10. MEDICAL/SURGICAL HISTORY: Renal failure, chronic. . COMPARISON: [facility] – [place], CT ABDOMEN & PELVIS W/O CONTRAST, 05/15/2018. . MEASUREMENTS: Liver:__ 16.2 cm. Common Bile Duct:__ 3mm. Right Kidney:__ cm. FINDINGS: Liver: Normal echotexture without focal lesion or ductal dilatation. Portal Vein: Hepatopedal flow seen in portal vein. Common Duct: No intraluminal mass or stone visualized. Gallbladder: Small gallbladder polyps. Pancreas: Not well visualized. Right Kidney: Atrophic Other: Trace free fluid CONCLUSION: 1. No gallstones identified. No biliary ductal dilatation. Small gallbladder polyps. Right kidney at rophic. Trace free fluid. Electronically signed by: Micheal Hathaway MD 05/15/2018 8:47 PM EDT
[2018-05-15] MEDS ORDERED: Calcitriol 0.25 MCG Capsule PO SCH (22:00)
[2018-05-16] MEDS ORDERED: Piperacil/Tazo 2.25 GM Premix 50 ML IV.SIG SCH ×2 (06:00→17:00)
[2018-05-16 08:42] LABS: Baso # (Auto) 0.1 th/mm3 (0.0-0.2); Baso % (Auto) 0.9 % (0.0-2.0); Eos # (Auto) 0.8 th/mm3 (0.0-0.4); Eos % (Auto) 10.4 % (0.0-4.0); Hematocrit 31.9 % (39.0-51.0); Hemoglobin 10.8 gm/dL (13.0-17.0); Lymph # (Auto) 0.9 th/mm3 (1.0-4.8); Lymph % (Auto) 12.4 % (9.0-44.0); Mean Corpuscular Hemoglobin 30.3 pg (27.0-34.0); Mean Corpuscular Volume 89.1 fL (80.0-100.0); Mean Platelet Volume 8.6 fL (7.0-11.0); Mono # (Auto) 0.9 th/mm3 (0.0-0.9); Mono % (Auto) 12.6 % (0.0-8.0); Neut # (Auto) 4.6 th/mm3 (1.8-7.7); Neut % (Auto) 63.7 % (16.0-70.0); Platelet Count 157 th/mm3 (150-450); Red Blood Count 3.58 mil/mm3 (4.50-5.90); Red Cell Distribution Width 13.6 % (11.6-17.2); White Blood Count 7.2 th/mm3 (4.0-11.0)
[2018-05-16] MEDS: Calcium Acetate 667 MG Capsule PO SCH (08:56)
[2018-05-16] MEDS: amLODIPine 10 MG Tablet PO SCH (08:56)
[2018-05-16 09:11] LABS: Alanine Aminotransferase 14 U/L (12-78); Albumin 2.5 g/dL (3.4-5.0); Alkaline Phosphatase 87 U/L (45-117); Anion Gap 12 meq/L (5-15); Aspartate Aminotransferase 3 U/L (15-37); Blood Urea Nitrogen 56 mg/dL (7-18); Calcium 8.5 mg/dL (8.5-10.1); Carbon Dioxide 24.2 meq/L (21.0-32.0); Chloride 103 meq/L (98-107); Glomerular Filtration Rate 9 mL/min (>89); Glucose,Random 83 mg/dL (74-106); Sodium 139 meq/L (136-145); Total Protein 6.6 g/dL (6.4-8.2)
--- NOTE | 2018-05-16 09:16 | P.CONNP ---
History of Present Illness Service: Nephrology Consult date: 05/16/18 Reason for Consult: ESRD on PD Primary Care Provider: No Primary Care Physician Chief Complaint: abdominal pain History of Present Illness: This is a 42 y/o male who was admitted last night for abdominal pain, Nausea, and vomiting. The symptoms began Wednesday after eating a greasy meal. He had his transfer set replaced on Wednesday as well and I was able to contact his PD nurse who reports he has been doing well, recent labs were acceptable for him. He is visiting from [place] and plans to return there at discharge. He did not have PD last night, his last treatment Wednesday. He is on 5 cycles, 2L fill volume, 1.5 and 2.5% solution, no last fill. The patient reports his fluid is cloudy, bloody, and has clots throughout. PMH of HTN and metabolic bone disease. He is able to understand a little Brazilian, his son can translate. He is a full code. Review of Systems Constitutional: Denies excessive sweating, Denies fever(s), Denies increased appetite Cardiovascular: Denies chest pain, Denies fast heart rate, Denies generalized swelling, Denies irregular heart rhythm Gastrointestinal: Reports abdominal pain, Reports nausea, Reports vomiting, Denies bright, red blood in stools, Denies change in bowel habits, Denies coffee ground vomit, Denies constipation Musculoskeletal: Denies joint swelling, Denies muscle weakness Hematologic/Lymphatic: Denies easy bleeding Allergic/Immunologic: Denies GI upset with certain foods PMFSH - History History Provided By: Patient, Family Member - Medical History Medical History: Medical History (Last Reviewed 05/15/18 @ 12:31 by ROB Tang) Chronic kidney disease Hypertension Peritoneal dialysis catheter in place - Tobacco History Second Hand Smoke Exposure: No Smoking Status: Never smoker - Alcohol History How Often Do You Have a Drink Containing Alcohol: Monthly or less - Substance Use History Substance History: No History of Abuse - Travel History History of Recent Travel: Yes (From [place] ) Recent Travel in the [facility] Within the Last 8 Weeks: Yes Recent Travel Out of the Country Within the Last 8 Weeks: No - Immunization History Tetanus Immunization: <5 Years Hx Influenza Vaccine This Season: Yes Medications and Allergies Active Medications: Active Medications Acetaminophen (Tylenol) 650 mg PO Q6HR PRN PRN Reason: PAIN SCALE 1 TO 2 Hydrocodone Bitart/Acetaminophen ([place] 5/325) 1 tab PO Q4H PRN PRN Reason: PAIN SCALE 3 TO 5 Last Admin: 05/15/18 23:43 Dose: 1 tab Al Hydroxide/Mg Hydroxide (Milk Of Magnesia Liq) 30 ml PO Q12H PRN PRN Reason: Mild Constipation Amlodipine Besylate (Norvasc) 10 mg PO DAILY [facility] Bisacodyl (Dulcolax Supp) 10 mg RECTAL DAILY PRN PRN Reason: SEVERE CONSITIPATION Calcitriol (Rocaltrol) 0.25 mcg PO Q48H [facility] Last Admin: 05/16/18 00:01 Dose: 0.25 mcg Calcium Acetate (Phoslo) 1,334 mg PO DAILY [facility] Piperacillin/Tazobactam/Dextrose (Zosyn 2.25 Gm Premix) 50 mls @ 100 mls/hr IV.SIG Q8H [facility] Last Admin: 05/16/18 06:43 Dose: 100 mls/hr Lactulose (Lactulose Liq) 30 ml PO DAILY PRN PRN Reason: SEVERE CONSITIPATION Mupirocin (Bactroban 2% Oint) 1 applicatio TOPICAL DAILY [facility] Ondansetron HCl (Zofran Inj) 4 mg IV.PUSH Q6H PRN PRN Reason: NAUSEA OR VOMITING Oxycodone/Acetaminophen (Percocet 10/325 Mg) 1 tab PO Q6H PRN PRN Reason: PAIN SCALE 6 TO 10 Senna/Docusate Sodium (Ijeoma-Colace) 1 tab PO BID PRN PRN Reason: CONSTIPATION Sennosides (Senokot) 17.2 mg PO Q12H PRN PRN Reason: Moderate Constipation Temazepam (Restoril) 15 mg PO HS PRN PRN Reason: INSOMNIA Terazosin HCl (Hytrin) 2 mg PO HS [facility] Last Admin: 05/16/18 00:02 Dose: 2 mg Allergies Allergy/AdvReac Type Severity Reaction Status Date / Time morphine AdvReac Mild Shortness Verified 05/15/18 12:04 of Breath Home Medications Medication Instructions Recorded Confirmed Type amlodipine 10 mg PO DAILY 05/15/18 05/15/18 History calcitriol 0.25 mcg PO Q OTHER DAY 05/15/18 05/15/18 History calcium acetate 1,334 mg PO DAILY 05/15/18 05/15/18 History mupirocin 1 applic TOPICAL DAILY 05/15/18 05/15/18 History terazosin 2 mg PO HS 05/15/18 05/15/18 History Exam Vital signs: Vital Signs 05/15/18 11:19 05/15/18 12:04 05/15/18 12:39 Temperature 98.5 F Pulse Rate 80 76 75 Respiratory Rate 17 18 Blood Pressure 136/83 152/67 H Pulse Oximetry 97 98 97 05/15/18 13:14 05/15/18 14:32 05/15/18 20:00 Temperature 98.6 F 98.3 F Pulse Rate 70 58 L Respiratory Rate 18 18 18 Blood Pressure 135/75 120/69 Pulse Oximetry 98 98 05/16/18 00:00 05/16/18 04:00 05/16/18 08:00 Temperature 98.8 F 97.8 F 98.4 F Pulse Rate 79 64 67 Respiratory Rate 18 18 20 Blood Pressure 133/72 105/55 L 123/70 Pulse Oximetry 97 99 94 L Intake & Output 05/15/18 05/16/18 05/16/18 18:59 06:59 18:59 Intake Total 100 / 100 420 / 420 Balance 100 / 100 420 / 420 Weight 79.379 kg 79.3 kg Intake: IV 100 / 100 Zosyn 4.5 GM Premix 4.5 gm In 100 / 100 100 ml @ 200 mls/hr IV.SIG STAT STA Rx#:[id number] Oral 420 / 420 Other: # Voids 2 Date of Last Bowel Movement 05/15/18 - Constitutional no acute distress - Routine HEENT Exam Head: Present: normocephalic - Routine Neck Exam Present: supple, full ROM - Routine Chest/Breast/Axilla Exam Chest wall: Absent: tenderness - Routine Respiratory Exam Present: CTA bilaterally. Absent: accessory muscle use - Routine Cardiovascular Exam Present: RRR, S1, S2 - Routine Abdominal Exam Present: soft. Absent: tenderness, distended, rebound, firm, rigid Comments: hyperactive bowel sounds PD catheter site unremarkable, dressing in place - Routine Extremities Exam Absent: edema - Routine Skin Exam Present: intact, warm - Routine Neurological Exam Present: alert, oriented X3, CN II-XII intact Results - Lab Results 05/16/18 06:58 05/15/18 12:20 Most recent lab results Calcium 8.7 mg/dL (8.5-10.1) 05/15/18 12:20 Phosphorus 3.9 mg/dL (2.5-4.9) 05/15/18 12:20 Magnesium 1.9 mg/dL (1.5-2.5) 05/15/18 12:20 Assessment and Plan - Assessment (1) ESRD (end stage renal disease) on dialysis Code(s): N18.6 - End stage renal disease; Z99.2 - Dependence on renal dialysis Status: Acute Plan: He has been on dialysis for 5 years. PD normally ongoing without issues. His regimen consists of 5 cycles, 2L fill volume, 1.5 and 2.5% solution, no last fill. We will resume PD tonight, have asked the dialysis nurse to monitor fluid appearance and obtain fluid cell count. He was given Vancomycin and Zosyn prophylactically for peritonitis. His abdomen is not tender, although mild leukocytosis is noted. High protein diet encouraged. Avoid Gadolinium and IVF administration. Dose medications appropriate to his renal status. Monitor renal panel. He is on Calcium Acetate with meals for metabolic bone disorder, also on calcitriol for secondary hyperparathyroidism. He has minor anemia but does not receive Epogen per the PD nurse at his dialysis center in [place]. (2) Abdominal pain Code(s): R10.9 - Unspecified abdominal pain Status: Acute Plan: Started after eating greasy meal. Liver US does not suggest cholelithiasis. Pain is improving. CT shows free air and trace ascites most likely related to PD catheter. Work up for peritonitis in progress. He has leukocytosis but is afebrile, and was given Vancomycin and Zosyn IV. (3) Hypertension Code(s): I10 - Essential (primary) hypertension Status: Acute Plan: Continue home medications. Slightly hypotensive this morning.
--- NOTE | 2018-05-16 09:34 | ECG ---
Date Performed: 05/15/2018 Time Performed: 12:13:30 PTAGE: 42 years EKG: Sinus rhythm NORMAL ECG NO PREVIOUS TRACING DOCTOR: Lucas Ferguson Interpretating Date/Time 05/16/2018 09:31:44
--- NOTE | 2018-05-16 09:56 | P.HPFP ---
History of Present Illness Primary Care Physician: No Primary Care Physician Chief Complaint: abdominal pain History of Present Illness: Sr Hammonds is a 42-year-old male with past medical history of hypertension and chronic kidney disease on peritoneal dialysis who presents to the ED due to diffuse abdominal pain. Patient is currently on vacation from [place]. He reports that 2 days ago he had the external portion of his peritoneal dialysis tubing replaced. Since Wednesday he has noted bloody/cloudy peritoneal fluid during his peritoneal dialysis. Denies any blood clots in the fluid. Patient reports that yesterday he ate a heavy fatty meal and developed severe diffuse abdominal pain worse at right upper quadrant. At that time abdominal pain was 7/10, currently abdominal pain was 1/10 in the ED since receiving pain medications in the ED. Patient vomited once, nonbloody non-bilious. Today he denies any fever, nausea or vomiting, diarrhea, chest pain, shortness of breath , numbness, weight loss. Patient does endorse chills on Wednesday night, now resolved. Of note patient has been on peritoneal dialysis for the past 5 years. Denies any previous episodes of blood in the peritoneal fluid or prior infection. He reports he still able to make urine and denies any dysuria. The ED patient received Zosyn 1, vancomycin 1 , Nedrow [address] abdomen pelvis showed free intraperitoneal air possibly due to peritoneal dialysis catheter, mild ascites and atrophic [place] kidneys. Today he feels improved. He missed peritoneal dialysis last night but should be able to have this tonight. The fluid showed WBC but not bacteria on a gram stain. Appreciate help of Nephrology. - Diagnosis (1) Peritonitis associated with peritoneal dialysis (2) CRF (chronic renal failure) (3) Hypertension (4) Nutrition, metabolism, and development symptoms Inpatient Certification: I certify that the inpatient services were ordered in accordance with Medicare regulations governing the order. This includes certification that hospital inpatient services are reasonable and necessary and in the case of services not specified as inpatient-only under 42 CFR 419.22(n), that they are appropriately provided as inpatient services in accordance to with the 2-midnight benchmark under 43 CFR 412.3(e) Estimated Total Length of Stay (Days): 4 Plans for Post Hospital Care: Home Review of Systems other (see ROS done on admission) PMFSH - History History Provided By: Patient, Family Member - Medical History Medical History: Medical History (Last Reviewed 05/15/18 @ 12:31 by ROB Tang) Chronic kidney disease Hypertension Peritoneal dialysis catheter in place - Tobacco History Second Hand Smoke Exposure: No Smoking Status: Never smoker - Alcohol History How Often Do You Have a Drink Containing Alcohol: Monthly or less - Substance Use History Substance History: No History of Abuse - Travel History History of Recent Travel: Yes (From [place] ) Recent Travel in the [place] Within the Last 8 Weeks: Yes Recent Travel Out of the Country Within the Last 8 Weeks: No - Immunization History Tetanus Immunization: <5 Years Hx Influenza Vaccine This Season: Yes Medications and Allergies Active Medications: Active Medications Acetaminophen (Tylenol) 650 mg PO Q6HR PRN PRN Reason: PAIN SCALE 1 TO 2 Hydrocodone Bitart/Acetaminophen ([place] 5/325) 1 tab PO Q4H PRN PRN Reason: PAIN SCALE 3 TO 5 Last Admin: 05/15/18 23:43 Dose: 1 tab Al Hydroxide/Mg Hydroxide (Milk Of Magnesia Liq) 30 ml PO Q12H PRN PRN Reason: Mild Constipation Amlodipine Besylate (Norvasc) 10 mg PO DAILY [facility] Last Admin: 05/16/18 08:56 Dose: 10 mg Bisacodyl (Dulcolax Supp) 10 mg RECTAL DAILY PRN PRN Reason: SEVERE CONSITIPATION Calcitriol (Rocaltrol) 0.25 mcg PO Q48H [facility] Last Admin: 05/16/18 00:01 Dose: 0.25 mcg Calcium Acetate (Phoslo) 1,334 mg PO DAILY [facility] Last Admin: 05/16/18 08:56 Dose: 1,334 mg Ceftazidime (Tazicef Inj) 1,000 mg I-PERITONL DAILY [facility] Lactulose (Lactulose Liq) 30 ml PO DAILY PRN PRN Reason: SEVERE CONSITIPATION Mupirocin (Bactroban 2% Oint) 1 applicatio TOPICAL DAILY [facility] Ondansetron HCl (Zofran Inj) 4 mg IV.PUSH Q6H PRN PRN Reason: NAUSEA OR VOMITING Oxycodone/Acetaminophen (Percocet 10/325 Mg) 1 tab PO Q6H PRN PRN Reason: PAIN SCALE 6 TO 10 Last Admin: 05/16/18 08:58 Dose: 1 tab Senna/Docusate Sodium (Ijeoma-Colace) 1 tab PO BID PRN PRN Reason: CONSTIPATION Sennosides (Senokot) 17.2 mg PO Q12H PRN PRN Reason: Moderate Constipation Temazepam (Restoril) 15 mg PO HS PRN PRN Reason: INSOMNIA Terazosin HCl (Hytrin) 2 mg PO HS [facility] Last Admin: 05/16/18 00:02 Dose: 2 mg Vancomycin HCl (Vancomycin Inj) 2,000 mg I-PERITONL Q7D [facility] Allergies Allergy/AdvReac Type Severity Reaction Status Date / Time morphine AdvReac Mild Shortness Verified 05/15/18 12:04 of Breath Home Medications Medication Instructions Recorded Confirmed Type amlodipine 10 mg PO DAILY 05/15/18 05/15/18 History calcitriol 0.25 mcg PO Q OTHER DAY 05/15/18 05/15/18 History calcium acetate 1,334 mg PO DAILY 05/15/18 05/15/18 History mupirocin 1 applic TOPICAL DAILY 05/15/18 05/15/18 History terazosin 2 mg PO HS 05/15/18 05/15/18 History Exam Vital signs: Vital Signs 05/15/18 11:19 05/15/18 12:04 05/15/18 12:39 Temperature 98.5 F Pulse Rate 80 76 75 Respiratory Rate 17 18 Blood Pressure 136/83 152/67 H Pulse Oximetry 97 98 97 05/15/18 13:14 05/15/18 14:32 05/15/18 20:00 Temperature 98.6 F 98.3 F Pulse Rate 70 58 L Respiratory Rate 18 18 18 Blood Pressure 135/75 120/69 Pulse Oximetry 98 98 05/16/18 00:00 05/16/18 04:00 05/16/18 08:00 Temperature 98.8 F 97.8 F 98.4 F Pulse Rate 79 64 67 Respiratory Rate 18 18 20 Blood Pressure 133/72 105/55 L 123/70 Pulse Oximetry 97 99 94 L Intake & Output 05/15/18 05/16/18 05/16/18 18:59 06:59 18:59 Intake Total 100 / 100 420 / 420 Balance 100 / 100 420 / 420 Weight 79.379 kg 79.3 kg Intake: IV 100 / 100 Zosyn 4.5 GM Premix 4.5 gm In 100 / 100 100 ml @ 200 mls/hr IV.SIG STAT STA Rx#:[id number] Oral 420 / 420 Other: # Voids 2 Date of Last Bowel Movement 05/15/18 - Constitutional no acute distress, average body habitus, cooperative - Routine HEENT Exam Head: Present: normocephalic, atraumatic. Absent: scalp tenderness, facial swelling Eye: Present: EOMI. Absent: scleral injection, conjunctivae pink ENT: Present: mucous membranes moist, oropharynx clear - Routine Neck Exam Present: supple, full ROM - Routine Chest/Breast/Axilla Exam Chest wall: Absent: tenderness, mass, pacemaker, chest tube - Routine Respiratory Exam Absent: accessory muscle use, patient mechanically ventilated, decreased breath sounds, CTA bilaterally, prolonged expiratory phase, rales, respiratory distress , rhonchi, stridor, wheezes, crackles, distant breath sounds, diminished air movement - Routine Cardiovascular Exam Present: RRR. Absent: murmur, gallop, rubs, bradycardia, tachycardia, irregular rhythm, irregularly irregular - Routine Abdominal Exam Present: soft, normoactive bowel sounds, drain (for peritoneal dialysis). Absent: tenderness, distended, rebound, guarding, ostomy - Routine Extremities Exam Absent: cyanosis, clubbing, edema, full ROM, tenderness - Routine Skin Exam Present: dry. Absent: cyanosis, erythema, mottling, petechiae, wounds - Routine Neurological Exam Present: alert, oriented X3, normal reflexes, moving all extremities, normal tone. Absent: altered mental status Results - Labs Result diagrams: 05/16/18 06:58 05/16/18 06:58 Abnormal lab results 05/15/18 05/15/18 05/15/18 Range/Units 12:20 12:20 12:20 WBC 11.4 H (4.0-11.0) th/mm3 RBC 3.93 L (4.50-5.90) mil/mm3 Hgb 11.9 L (13.0-17.0) gm/dL Hct 34.8 L (39.0-51.0) % Neut % (Auto) 80.4 H (16.0-70.0) % Lymph % (Auto) 6.1 L (9.0-44.0) % Valley % (Auto) 10.9 H (0.0-8.0) % Eos % (Auto) (0.0-4.0) % Neut # (Auto) 9.2 H (1.8-7.7) th/mm3 Lymph # (Auto) 0.7 L (1.0-4.8) th/mm3 Valley # (Auto) 1.2 H (0.0-0.9) th/mm3 Eos # (Auto) (0.0-0.4) th/mm3 APTT 31.7 H (24.3-30.1) sec BUN 48 H (7-18) mg/dL Creatinine 6.54 H (0.60-1.30) mg/dL Estimated GFR 9 L (>89) mL/min AST 8 L (15-37) U/L Albumin 3.1 L (3.4-5.0) g/dL Urine Protein (Neg-Trace) mg/dL Urine Occult Blood (Negative) Peritoneal RBC (0-0) /mm3 Periton Nuc Cells (0-10) /mm3 05/15/18 05/15/18 05/16/18 Range/Units 13:15 15:58 06:58 WBC (4.0-11.0) th/mm3 RBC 3.58 L (4.50-5.90) mil/mm3 Hgb 10.8 L (13.0-17.0) gm/dL Hct 31.9 L (39.0-51.0) % Neut % (Auto) (16.0-70.0) % Lymph % (Auto) (9.0-44.0) % Valley % (Auto) 12.6 H (0.0-8.0) % Eos % (Auto) 10.4 H (0.0-4.0) % Neut # (Auto) (1.8-7.7) th/mm3 Lymph # (Auto) 0.9 L (1.0-4.8) th/mm3 Valley # (Auto) (0.0-0.9) th/mm3 Eos # (Auto) 0.8 H (0.0-0.4) th/mm3 APTT (24.3-30.1) sec BUN (7-18) mg/dL Creatinine (0.60-1.30) mg/dL Estimated GFR (>89) mL/min AST (15-37) U/L Albumin (3.4-5.0) g/dL Urine Protein 100 H (Neg-Trace) mg/dL Urine Occult Blood Small H (Negative) Peritoneal RBC 1299 H (0-0) /mm3 Periton Nuc Cells 07685 H (0-10) /mm3 05/16/18 Range/Units 06:58 WBC (4.0-11.0) th/mm3 RBC (4.50-5.90) mil/mm3 Hgb (13.0-17.0) gm/dL Hct (39.0-51.0) % Neut % (Auto) (16.0-70.0) % Lymph % (Auto) (9.0-44.0) % Valley % (Auto) (0.0-8.0) % Eos % (Auto) (0.0-4.0) % Neut # (Auto) (1.8-7.7) th/mm3 Lymph # (Auto) (1.0-4.8) th/mm3 Valley # (Auto) (0.0-0.9) th/mm3 Eos # (Auto) (0.0-0.4) th/mm3 APTT (24.3-30.1) sec BUN 56 H (7-18) mg/dL Creatinine 6.89 H (0.60-1.30) mg/dL Estimated GFR 9 L (>89) mL/min AST 3 L (15-37) U/L Albumin 2.5 L D (3.4-5.0) g/dL Urine Protein (Neg-Trace) mg/dL Urine Occult Blood (Negative) Peritoneal RBC (0-0) /mm3 Periton Nuc Cells (0-10) /mm3 Short CBC 05/15/18 05/16/18 Range/Units 12:20 06:58 WBC 11.4 H 7.2 (4.0-11.0) th/mm3 Hgb 11.9 L 10.8 L (13.0-17.0) gm/dL Hct 34.8 L 31.9 L (39.0-51.0) % Plt Count 177 157 (150-450) th/mm3 BMP 05/15/18 05/16/18 12:20 06:58 Sodium 137 139 Potassium 3.9 4.0 Chloride 101 103 Carbon Dioxide 24.9 24.2 BUN 48 H 56 H Creatinine 6.54 H 6.89 H Calcium 8.7 8.5 Liver Function 05/15/18 05/16/18 Range/Units 12:20 06:58 Total Bilirubin 0.8 1.0 (0.2-1.0) mg/dL AST 8 L 3 L (15-37) U/L ALT 19 14 (12-78) U/L Alkaline Phosphatase 76 87 (45-117) U/L Albumin 3.1 L 2.5 L D (3.4-5.0) g/dL Urine 05/15/18 Range/Units 15:58 Urine Color Yellow (Yellw/Straw) Urine Clarity Clear (Clear) Urine pH 7.0 (5.0-8.5) Ur Specific [place] 1.009 (1.002-1.035) Urine Protein 100 H (Neg-Trace) mg/dL Urine Glucose (UA) 50 (Negative) mg/dL - Imaging Impressions Liver Ultrasound 05/15/18 00:00 CONCLUSION: 1. No gallstones identified. No biliary ductal dilatation. Small gallbladder polyps. Right kidney atrophic. Trace free fluid. Chest X-Ray 05/15/18 12:04 CONCLUSION: No acute cardiopulmonary disease Abdomen/Pelvis CT 05/15/18 14:14 CONCLUSION: 1. Free intraperitoneal air. This may be related to peritoneal dialysis catheter which is looped in the pelvis and enters just to the left of umbilical region. 2. Mild ascites. Atrophic [place] kidneys. Caprini VTE Risk Assessment Caprini VTE Risk Assessment: Moderate/High Risk (score >= 2) VTE Pharmacological Exception Reason: High risk for bleeding Caprini Risk Assessment Model: Point Value = 1 Point Value = 2 Point Value = 3 Point Value = 5 Age 41-60 Minor surgery BMI > 25 kg/m2 Swollen legs Varicose veins or History of unexplained or recurrent spontaneous Oral contraceptives or hormone replacement Sepsis (< 1 month) Serious lung disease, including pneumonia (< 1 month) Abnormal pulmonary function Acute myocardial infarction Congestive heart failure (< 1 month) History of inflammatory bowel disease Medical patient at bed rest Age 61-74 Arthroscopic surgery Major open surgery (> 45 min) Laparoscopic surgery (> 45 min) Malignancy Confined to bed (> 72 hours) Immobilizing plaster cast Central venous access Age >= 75 History of VTE Family history of VTE Factor V Leiden Prothrombin [id number] Lupus anticoagulant Anticardiolipin antibodies Elevated serum homocysteine Heparin-induced thrombocytopenia Other congenital or acquired thrombophilia Stroke (< 1 month) Elective arthroplasty Hip, pelvis, or leg fracture Acute spinal cord injury (< 1 month) Prophylaxis Regimen: Total Risk Factor Score Risk Level Prophylaxis Regimen 0-1 Low Early ambulation 2 Moderate Order ONE of the following: *Sequential Compression Device (SCD) *Heparin 5000 units SQ BID 3-4 Higher Order ONE of the following medications: *Heparin 5000 units SQ TID *Enoxaparin/Lovenox 40 mg SQ daily (WT < 150 kg, CrCl > 30 mL/min) *Enoxaparin/Lovenox 30 mg SQ daily (WT < 150 kg, CrCl > 10-29 mL/min) *Enoxaparin/Lovenox 30 mg SQ BID (WT < 150 kg, CrCl > 30 mL/min) AND/OR *Sequential Compression Device (SCD) 5 or more Highest Order ONE of the following medications: *Heparin 5000 units SQ TID (Preferred with Epidurals) *Enoxaparin/Lovenox 40 mg SQ daily (WT < 150 kg, CrCl > 30 mL/min) *Enoxaparin/Lovenox 30 mg SQ daily (WT < 150 kg, CrCl > 10-29 mL/min) *Enoxaparin/Lovenox 30 mg SQ BID (WT < 150 kg, CrCl > 30 mL/min) AND *Sequential Compression Device (SCD) Assessment and Plan - Assessment (1) Peritonitis associated with peritoneal dialysis Code(s): T85.71XA - Infection and inflammatory reaction due to peritoneal dialysis catheter, initial encounter Status: Acute Plan: Patient with history of peritoneal dialysis for the past 5 years without any prior complications presenting with 2 day history of bloody/cloudy peritoneal fluid accompanied by diffuse abdominal pain. There is concern for peritonitis due to infection. Vital signs within normal limits Slight leukocytosis of 11.[address] abdomen pelvis showed free intraperitoneal air possibly due to peritoneal dialysis catheter, mild ascites and atrophic [place] kidneys. Chest x-ray: Normal Liver ultrasound: No gallstones or biliary ductal dilation, small gallbladder polyps and right atrophic kidney. Mild trace free fluid. Continue to monitor vital signs Pain management: Nedrow per pain scale, his pain is minimal Continue with Zosyn 2.5g every 12 hours Nephrology consulted, appreciate recommendations and assisting with management of peritoneal dialysis. he likely has infection and unsure exactly what Nephrology recommends Follow-up: Blood cultures Peritoneal fluid studies A.m. labs (2) CRF (chronic renal failure) Code(s): N18.9 - Chronic kidney disease, unspecified Status: Acute Plan: Patient with BUN/creatinine of 48/6.4 and GFR of 9. Avoid nephrotoxic agents Continue to monitor Follow nephrology recommendations (3) Hypertension Code(s): I10 - Essential (primary) hypertension Status: Acute Plan: Blood pressure within normal limits Continue with home blood pressure medications (4) Nutrition, metabolism, and development symptoms Code(s): R63.8 - Other symptoms and signs concerning food and fluid intake Status: Acute Plan: Fluids: Patient is on PD, defer fluid recommendations to nephrology Electrolytes: Management per nephrology recommendations Nutrition: Renal diet DVT prophylaxis: SCDs (1) Peritonitis associated with peritoneal dialysis Qualifiers: Encounter type: initial encounter Qualified Code(s): T85.71XA - Infection and inflammatory reaction due to peritoneal dialysis catheter, initial encounter (2) CRF (chronic renal failure) Qualifiers: Chronic kidney disease stage: unspecified stage Qualified Code(s): N18.9 - Chronic kidney disease, unspecified (3) Hypertension Qualifiers: Hypertension type: renovascular hypertension Qualified Code(s): I15.0 - Renovascular hypertension
[2018-05-16] MEDS ORDERED: CEFTAZIDIME 1000 MG I-PERITONL SCH (11:00)
[2018-05-17] MEDS: amLODIPine 10 MG Tablet PO SCH (08:46)
[2018-05-17] MEDS: Calcium Acetate 667 MG Capsule PO SCH (08:46)
--- NOTE | 2018-05-17 09:23 | P.PNNP ---
Subjective Interval history: Afebrile. Wanting to be discharged. No new complaints. Physical Exam Vital signs: Vital Signs 05/16/18 09:28 05/16/18 11:45 05/16/18 17:10 Temperature 98.4 F 97.8 F Pulse Rate 63 62 Respiratory Rate 4 L 20 20 Blood Pressure 109/59 L 116/72 Pulse Oximetry 94 L 98 05/16/18 17:11 05/16/18 18:34 05/16/18 20:00 Temperature 101.6 F H 99.8 F H 98.4 F Pulse Rate 101 H Respiratory Rate 18 Blood Pressure 129/68 Pulse Oximetry 96 05/17/18 00:00 05/17/18 04:00 05/17/18 08:00 Temperature 99.4 F 98.7 F 97.5 F L Pulse Rate 81 67 59 L Respiratory Rate 18 18 18 Blood Pressure 123/70 134/78 169/87 H Pulse Oximetry 98 99 98 - Constitutional no acute distress - Routine HEENT Exam Head: Present: normocephalic Eye: Present: EOMI ENT: Present: mucous membranes moist - Routine Neck Exam Present: supple, full ROM - Routine Respiratory Exam Present: CTA bilaterally. Absent: accessory muscle use - Routine Cardiovascular Exam Present: RRR, S1, S2 - Routine Abdominal Exam Present: soft, normoactive bowel sounds - Detailed Abdominal Exam Comments: PD catheter in place. - Routine Extremities Exam Present: pulses intact. Absent: edema, tenderness - Routine Skin Exam Present: intact, warm - Routine Neurological Exam Present: alert, oriented X3, CN II-XII intact - Detailed Neurological Exam: Coma Scale Eye Opening: Spontaneous Verbal Response: Oriented Motor Response: Obey commands Nataliya Coma Scale Total: 15 Assessment and Plan - Assessment (1) ESRD (end stage renal disease) on dialysis Code(s): N18.6 - End stage renal disease; Z99.2 - Dependence on renal dialysis Status: Acute Plan: PD ongoing without issues. His regimen consists of 5 cycles, 2L fill volume, 1.5 and 2.5% solution, no last fill. Avoid Gadolinium and IVF administration. Monitor renal panel intermittently. He is on Calcium Acetate with meals for metabolic bone disorder, also on calcitriol for secondary hyperparathyroidism. High protein diet encouraged. He will need to follow in his home clinic when he returns. (2) Abdominal pain Code(s): R10.9 - Unspecified abdominal pain Status: Acute Plan: Due to peritonitis. See below. (3) Peritonitis associated with peritoneal dialysis Code(s): T85.71XA - Infection and inflammatory reaction due to peritoneal dialysis catheter, initial encounter Status: Acute Qualifiers: Encounter type: initial encounter Qualified Code(s): T85.71XA - Infection and inflammatory reaction due to peritoneal dialysis catheter, initial encounter Plan: He is on IP Vancomycin 1g and 1g Fortaz with 6 hr dwell. will need to continue this at discharge x 2 weeks. I have notified his PD nurse. Will need CM assistance in arranging. (4) Hypertension Code(s): I10 - Essential (primary) hypertension Status: Acute Qualifiers: Hypertension type: renovascular hypertension Qualified Code(s): I15.0 - Renovascular hypertension Plan: Continue home medications. - Plan Discharge Planning: The pt will need antibiotics arranged. Once this is done he can be discharged.
[2018-05-17 09:52] LABS: Hematocrit 33.2 % (39.0-51.0); Hemoglobin 11.3 gm/dL (13.0-17.0); Mean Corpuscular HGB Conc 33.9 % (32.0-36.0); Mean Corpuscular Hemoglobin 30.3 pg (27.0-34.0); Mean Corpuscular Volume 89.3 fL (80.0-100.0); Mean Platelet Volume 8.6 fL (7.0-11.0); Platelet Count 210 th/mm3 (150-450); Red Blood Count 3.72 mil/mm3 (4.50-5.90); Red Cell Distribution Width 13.6 % (11.6-17.2); White Blood Count 7.1 th/mm3 (4.0-11.0)
--- NOTE | 2018-05-17 10:03 | P.PNFP ---
Subjective Interval history: Seen and examined at bedside. Patient received ceftazidime IP last night. Patient reports improvement of abdominal pain. Denies any fever , chills, chest pain, shortness of breath, nausea, vomiting or dizziness. She is ready to go home. <Adriana Kelly - 05/17/18 18:55> Results - Labs Result diagrams: 05/17/18 08:20 05/17/18 08:20 <Jory Porter - 05/18/18 14:04> Abnormal lab results 05/17/18 Range/Units 08:20 RBC 3.72 L (4.50-5.90) mil/mm3 Hgb 11.3 L (13.0-17.0) gm/dL Hct 33.2 L (39.0-51.0) % Short CBC 05/17/18 Range/Units 08:20 WBC 7.1 (4.0-11.0) th/mm3 Hgb 11.3 L (13.0-17.0) gm/dL Hct 33.2 L (39.0-51.0) % Plt Count 210 D (150-450) th/mm3 <Adriana Kelly - 05/17/18 10:03> Physical Exam Vital signs: Vital Signs 05/16/18 11:45 05/16/18 17:10 05/16/18 17:11 Temperature 98.4 F 97.8 F 101.6 F H Pulse Rate 63 62 Respiratory Rate 20 20 Blood Pressure 109/59 L 116/72 Pulse Oximetry 94 L 98 05/16/18 18:34 05/16/18 20:00 05/17/18 00:00 Temperature 99.8 F H 98.4 F 99.4 F Pulse Rate 101 H 81 Respiratory Rate 18 18 Blood Pressure 129/68 123/70 Pulse Oximetry 96 98 05/17/18 04:00 05/17/18 08:00 Temperature 98.7 F 97.5 F L Pulse Rate 67 59 L Respiratory Rate 18 18 Blood Pressure 134/78 169/87 H Pulse Oximetry 99 98 <Adriana Kelly - 05/17/18 10:03> - Constitutional no acute distress <Adriana Kelly - 05/17/18 18:55> - Routine HEENT Exam Head: Present: normocephalic <Adriana Kelly 05/17/18 18:55> Eye: Present: EOMI, PERRL <Adriana Kelly 05/17/18 18:55> ENT: Present: mucous membranes moist <Adriana Kelly 05/17/18 18:55> - Routine Neck Exam Present: supple, full ROM <Adriana Kelly 05/17/18 18:55> - Routine Respiratory Exam Present: accessory muscle use, CTA bilaterally <Adriana Kelly 05/17/18 18: 55> - Routine Cardiovascular Exam Present: RRR, S1, S2. Absent: murmur, gallop, rubs <Adriana Kelly 18:55> - Routine Abdominal Exam Present: soft, normoactive bowel sounds. Absent: tenderness, distended, guarding <Adriana Kelly 05/17/18 18:55> Comments: incision c/d/i <Adriana Kelly 05/17/18 18:55> - Routine Extremities Exam Present: full ROM, pulses intact. Absent: cyanosis, clubbing, edema <Adriana Kelly 05/17/18 18:55> - Routine Skin Exam Present: intact <Adriana Kelly 05/17/18 18:55> - Routine Neurological Exam Present: alert, oriented X3, CN II-XII intact <Adriana Kelly 05/17/18 18: 55> - Routine Psychiatric Exam Present: normal affect <Adriana Kelly 05/17/18 18:55> Assessment and Plan - Assessment (1) Peritonitis associated with peritoneal dialysis Code(s): T85.71XA - Infection and inflammatory reaction due to peritoneal dialysis catheter, initial encounter Status: Acute (2) CRF (chronic renal failure) Code(s): N18.9 - Chronic kidney disease, unspecified Status: Acute (3) Hypertension Code(s): I10 - Essential (primary) hypertension Status: Acute (4) Nutrition, metabolism, and development symptoms Code(s): R63.8 - Other symptoms and signs concerning food and fluid intake Status: Acute <Jory Porter - 05/18/18 14:04> (1) Peritonitis associated with peritoneal dialysis Code(s): T85.71XA - Infection and inflammatory reaction due to peritoneal dialysis catheter, initial encounter Status: Acute Plan: Patient with history of peritoneal dialysis for the past 5 years without any prior complications presenting with 2 day history of bloody/cloudy peritoneal fluid accompanied by diffuse abdominal pain. There is concern for peritonitis due to infection. Vital signs within normal limits Slight leukocytosis of 11.[address] abdomen pelvis showed free intraperitoneal air possibly due to peritoneal dialysis catheter, mild ascites and atrophic [place] kidneys. Chest x-ray: Normal Liver ultrasound: No gallstones or biliary ductal dilation, small gallbladder polyps and right atrophic kidney. Mild trace free fluid. Continue to monitor vital signs WBC WNL Pain management: [place] per pain scale, his pain is minimal s/p IP fortaz, pt received IP vanc this am Peritoneal fluid studies: RBC- 1299 NUc [id number] culture- Enterobacter aerogenes Nephrology consulted, appreciate recommendations and assisting with management of peritoneal dialysis. Patient advised to follow-up with home ore dryer and dialysis nurse to continue antibiotic treatment and have vancomycin removed. Patient to continue course of fortaz for 14 days. Spoke to dialysis nurse Chelsea and she is aware of treatment plan. (2) CRF (chronic renal failure) Code(s): N18.9 - Chronic kidney disease, unspecified Status: Acute Plan: Patient with BUN/creatinine of 48/6.4 and GFR of 9. today BUN/Cr or 45/6.08 and GFR of 10 Avoid nephrotoxic agents Continue to monitor Follow nephrology recommendations (3) Hypertension Code(s): I10 - Essential (primary) hypertension Status: Acute Plan: Blood pressure within normal limits Continue with home blood pressure medications (4) Nutrition, metabolism, and development symptoms Code(s): R63.8 - Other symptoms and signs concerning food and fluid intake Status: Acute Plan: Fluids: Patient is on PD, defer fluid recommendations to nephrology Electrolytes: Management per nephrology recommendations Nutrition: Renal diet DVT prophylaxis: SCDs <Adriana Kelly - 05/17/18 18:30> - Attending Attestation The exam, history, and the medical decision-making described in the above note were completed with the assistance of the resident physician. I reviewed and agree with the findings presented. I attest that I had a [id number] encounter with the patient on the same day, and personally performed and documented my assessment and findings in the medical record. Spoke to the patient and his and explained that they need to contact their dialysis center in [place] is soon as they arrive. He will need his antibiotics to be flushed from the peritoneum. His ore dryer here at [place] does not believe that he will need vancomycin anymore. He will need his Fortaz and will be receiving that at his home in [place]. <Jory Porter - 05/18/18 14:04> <Adriana Kelly - Last Filed: 05/17/18 18:30> (1) Peritonitis associated with peritoneal dialysis Qualifiers: Encounter type: initial encounter Qualified Code(s): T85.71XA - Infection and inflammatory reaction due to peritoneal dialysis catheter, initial encounter (2) CRF (chronic renal failure) Qualifiers: Chronic kidney disease stage: unspecified stage Qualified Code(s): N18.9 - Chronic kidney disease, unspecified (3) Hypertension Qualifiers: Hypertension type: renovascular hypertension Qualified Code(s): I15.0 - Renovascular hypertension <Jory Porter - Last Filed: 05/18/18 14:04> (1) Peritonitis associated with peritoneal dialysis Qualifiers: Encounter type: initial encounter Qualified Code(s): T85.71XA - Infection and inflammatory reaction due to peritoneal dialysis catheter, initial encounter (2) CRF (chronic renal failure) Qualifiers: Chronic kidney disease stage: unspecified stage Qualified Code(s): N18.9 - Chronic kidney disease, unspecified (3) Hypertension Qualifiers: Hypertension type: renovascular hypertension Qualified Code(s): I15.0 - Renovascular hypertension <Adriana Kelly - Last Filed: 05/17/18 18:30> (1) Peritonitis associated with peritoneal dialysis Qualifiers: Encounter type: initial encounter Qualified Code(s): T85.71XA - Infection and inflammatory reaction due to peritoneal dialysis catheter, initial encounter (2) CRF (chronic renal failure) Qualifiers: Chronic kidney disease stage: unspecified stage Qualified Code(s): N18.9 - Chronic kidney disease, unspecified (3) Hypertension Qualifiers: Hypertension type: renovascular hypertension Qualified Code(s): I15.0 - Renovascular hypertension <Jory Porter - Last Filed: 05/18/18 14:04> (1) Peritonitis associated with peritoneal dialysis Qualifiers: Encounter type: initial encounter Qualified Code(s): T85.71XA - Infection and inflammatory reaction due to peritoneal dialysis catheter, initial encounter (2) CRF (chronic renal failure) Qualifiers: Chronic kidney disease stage: unspecified stage Qualified Code(s): N18.9 - Chronic kidney disease, unspecified (3) Hypertension Qualifiers: Hypertension type: renovascular hypertension Qualified Code(s): I15.0 - Renovascular hypertension
[2018-05-17 10:20] LABS: Calcium 9.1 mg/dL (8.5-10.1); Carbon Dioxide 25.6 meq/L (21.0-32.0); Potassium 3.5 meq/L (3.5-5.1)
--- NOTE | 2018-05-17 16:34 | P.DS ---
Date of admission: 05/15/18 16:13 Primary care physician: No Primary Care Physician Brief History from admission: Mr Hammonds is a 42-year-old male with past medical history of hypertension and chronic kidney disease on peritoneal dialysis for the last 5 years without issue who presented to the ED due to diffuse abdominal pain and a 2 day history of blood in his peritoneal fluid during peritoneal dialysis. He reports that 2 days ago he had the external portion of his peritoneal dialysis tubing replaced. Since Wednesday he has noted bloody/cloudy peritoneal fluid during his peritoneal dialysis. Denies any blood clots in the fluid. Patient reports that the day before he ate a heavy fatty meal and developed severe diffuse abdominal pain worse at right upper quadrant. At that time abdominal pain was 7/ 10, abdominal pain was 1/10 in the ED after receiving pain medications. Patient reported one episode of nonbloody/ non-bilious vomiting. He denied any fever, nausea, vomiting, diarrhea, chest pain, shortness of breath, numbness, weight loss. Patient did endorse chills on Wednesday night prior, which had resolved. He denied any previous episodes of blood in the peritoneal fluid or prior infection. He reports he still able to make urine and denied any dysuria. DS: Diagnosis - Discharge Diagnosis (1) Peritonitis associated with peritoneal dialysis Status: Acute DS: Medications - Discharge Medications Prescriptions: ceftazidime [TAZICEF] 1,000 mg INTRAPERITONEAL DAILY 14 Days #14 ea DS: Summary Hospital Course: Mr Hammonds is a 42-year-old male with past medical history of hypertension and chronic kidney disease on peritoneal dialysis for the last 5 years without issue who presented to the ED due to diffuse abdominal pain and a 2 day history of bloody peritoneal fluid during peritoneal dialysis. Patient was on vacation from [place]. He reports that 2 days before he had the external portion of his peritoneal dialysis tubing replaced. Since Wednesday he has noted bloody/ cloudy peritoneal fluid during his peritoneal dialysis. In the ED patient received Zosyn 1, vancomycin 1 , [place] [address] abdomen pelvis showed free intraperitoneal air possibly due to peritoneal dialysis catheter, mild ascites and atrophic [place] kidneys. Liver ultrasound showed no gallstones or biliary ductal dilation, small gallbladder polyps and right atrophic kidney with mild trace free fluid. Patient was admitted for peritonitis and evaluated by nephrology and received ceftazidime IP as well as IP Vancomycin. Peritoneal fluid cultured and grew Enterobacter Aerogenes, blood cultures negative after 4 days. Patient was discharge to follow up with home assistant store leader and dialysis nurse to continue antibiotic treatment and have vancomycin removed. - Time Spent with Patient Total time spent providing and/or coordinating discharge services: Exam Vital signs: Vital Signs 05/16/18 17:10 05/16/18 17:11 05/16/18 18:34 Temperature 97.8 F 101.6 F H 99.8 F H Pulse Rate 62 Respiratory Rate 20 Blood Pressure 116/72 Pulse Oximetry 98 05/16/18 20:00 05/17/18 00:00 05/17/18 04:00 Temperature 98.4 F 99.4 F 98.7 F Pulse Rate 101 H 81 67 Respiratory Rate 18 18 18 Blood Pressure 129/68 123/70 134/78 Pulse Oximetry 96 98 99 05/17/18 08:00 Temperature 97.5 F L Pulse Rate 59 L Respiratory Rate 18 Blood Pressure 169/87 H Pulse Oximetry 98 - Constitutional no acute distress, average body habitus - Routine HEENT Exam Head: Present: normocephalic, atraumatic Eye: Present: EOMI, PERRL ENT: Present: mucous membranes moist - Routine Respiratory Exam Present: CTA bilaterally. Absent: accessory muscle use, decreased breath sounds - Routine Cardiovascular Exam Present: RRR, S1, S2. Absent: murmur, gallop, rubs - Routine Abdominal Exam Present: soft, normoactive bowel sounds. Absent: tenderness, distended, rebound , guarding Comments: Peritoneal dialysis catheter in mid abdomen, area clean, dry, and free of debris or signs of infection. - Routine Extremities Exam Absent: cyanosis, clubbing, edema - Routine Skin Exam Absent: intact, cyanosis, erythema Results Procedures completed during hospitalization: Peritoneal Dialysis Labs on day of discharge: Labs from last 24 hours 05/17/18 05/17/18 08:20 08:20 WBC 7.1 RBC 3.72 L Hgb 11.3 L Hct 33.2 L MCV 89.3 MCH 30.3 MCHC 33.9 RDW 13.6 Plt Count 210 D MPV 8.6 Sodium 140 Potassium 3.5 Chloride 101 Carbon Dioxide 25.6 Anion Gap 13 BUN 45 H Creatinine 6.08 H Estimated GFR 10 L Random Glucose 80 Calcium 9.1 Preliminary micro results at discharge 05/15/18 12:46 Aerobic Blood Culture - Preliminary Blood - Peripheral No growth in 2 days Anaerobic Blood Culture - Preliminary No growth in 2 days 05/15/18 12:20 Aerobic Blood Culture - Preliminary Blood - Peripheral No growth in 2 days Anaerobic Blood Culture - Preliminary No growth in 2 days - Impressions ITS Impressions Liver Ultrasound 05/15/18 00:00 CONCLUSION: 1. No gallstones identified. No biliary ductal dilatation. Small gallbladder polyps. Right kidney atrophic. Trace free fluid. Chest X-Ray 05/15/18 12:04 CONCLUSION: No acute cardiopulmonary disease Abdomen/Pelvis CT 05/15/18 14:14 CONCLUSION: 1. Free intraperitoneal air. This may be related to peritoneal dialysis catheter which is looped in the pelvis and enters just to the left of umbilical region. 2. Mild ascites. Atrophic [place] kidneys. Discharge Plan - Discharge Disposition Patient Disposition: 01 Discharge Home - Discharge Condition Condition: Stable - Discharge Order Discharge Orders: Discharge Order (Routine); Ordered 05/17/18 Ordered By: Shoaib Saeed - Discharge Details Anticipated Discharge Date: 05/17/18 - Physicians Team Primary Care Provider: Primary Care Kati Dale Attending Provider: Jory Porter Other Providers: Miguel Mcnamara MD
== END 2018-05-17 10:51 | disposition home or self-care (01) ==
LOC: NEPE 11:13 → NEDA 16:13 → N06 17:54
PROVIDERS: ADMIT Family Medicine; ATTEND Family Medicine